=== PATIENT | female | born 1935 | race Caucasian/White ===

== ENCOUNTER 2017-03-07 10:36 | Inpatient (IN) | payer BC ==
--- NOTE | ~2017-03-07 | IDS ---
Interim Discharge Summary [facility] [address] [place]. [address] NAME: TONJA SPANN JANI : 34 STATUS : ADM IN PAT#: [id number] AGE: 81 ADM/REG DATE : 03/07/17 MR#: [id number] REPORT SERV DATE: 03/12/17 DICTATED BY: CA HOGAN DATE: 03/12/17 REPORT STATUS : Draft TRANSCRIBED BY: MODL DATE: 03/12/17 ADMISSION DATE: 03/07/2017 DISCHARGE DATE: PROBLEM LIST: 1. Community acquired pneumonia, left lower lobe, with small pleural effusion. 2. Acute exacerbation of chronic obstructive pulmonary disease in a smoker. 3. Metabolic encephalopathy, acute and dramatically improved. 4. Acute kidney injury, transient and resolved. 5. Acute urinary retention, resolved. 6. Episode of asymptomatic nonsustained ventricular tachycardia. 7. Hypertension. 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 HISTORY: This patient's was hospitalized in [facility] in [place] for about 10 days in early February, reportedly the patient stayed with him 13/05 and became exhausted, he reportedly had a pneumonia. He has gone home, but she has been trying to help take care of him and running back daily for outpatient treatment. The patient reportedly was noted by her family to be progressively more exhausted, then she developed cough, sore throat, diffuse muscle aches, and anorexia. She was taken by her family to her PCP, who thought she might have a urinary tract infection, because of how weak she was, and complaints of subjective fever, diaphoresis, and confusion. She was sent to the emergency room for evaluation. In the emergency room at [facility], her sodium was 130, her BUN was 76, creatinine was 3.17. Chest x-ray revealed left basilar infiltrate. The patient was referred to our team for inpatient care. Imaging initially in the hospital included CT scan of the brain without contrast. 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 The chest x-ray showed the left lower lobe infiltrate as mentioned above. CT scan of the chest without contrast revealed consolidation in the left lung base, some pleural fluid, and a 1.5 x 0.7 opacity in the lateral aspect of the right upper lobe, which will need CT followup or PET follow up in three months. The ER also did a CT of the abdomen and pelvis, which had no significant abnormalities. The patient was hospitalized, there was evidence for urinary retention, so, a Gomez catheter was placed. A renal ultrasound showed bilateral benign renal cysts, otherwise normal findings. She was given IV fluids and her renal function rapidly improved, by the next day, creatinine 1.73, and by 03/09/2017 creatinine 0.98/ and by 03/12/2017 it was 0.79. The patient was on Rocephin and had blood cultures x2 with no growth. She was not able to collect a sputum. Initially, the patient had a procalcitonin markedly elevated at 10.06, by 7was 0.87. White count on admission was 23.1, by 03/10/2017 it was 7.6. The patient was initially confused and agitated, our night scallop cutter had her receive some Geodon, after that she slept deeply, and then thereafter awoke and each day was steadily Interim Discharge Summary [address] [address] NAME: TONJA SPANN JANI : 34 STATUS : ADM IN PAT#: [id number] AGE: 81 ADM/REG DATE : 03/07/17 MR#: [id number] REPORT SERV DATE: 03/12/17 DICTATED BY: CA HOGAN DATE: 03/12/17 REPORT STATUS : Draft TRANSCRIBED BY: SHEREE DATE: 03/12/17 more clear of mind, and back to her usual self. We were able to take the Gomez catheter out, she was able to void her urine well. Followup chest x-rays revealed this continued left lower lobe infiltrate and small effusion that has not completely cleared yet. The patient has had two short episodes of approximately seven to nine beats of nonsustained ventricular tachycardia. Her potassium levels were not low during these times. Her magnesium levels were not low either. We are obtaining an echocardiogram on the 03/12/2017, to assess for left ventricular dysfunction, in the meantime, she has been started on metoprolol and is tolerating that well. She walks with physical therapy and the nursing staff, and she only needs contact guard assistance. We are planning for home health with visiting nurse to check her blood pressure, and respiratory status, and Physical Therapy to continue assessment and treatment. She states she already has a walker at home though she is not needing it here. She requested a bedside commode to be used at home. We will ask the PCP to follow up longitudinally to make sure that there is a resolution of this left lower lobe infiltrate, as well as schedule the followup CT of the chest in three months to look at this 1.5 x 0.7 opacity in the lateral aspect of the right upper lobe. A partner of mine will be assuming her care tomorrow. MARY/SHEREE Ca Hogan M.D. / [id number] CC: Fernanda Osei M.D.
--- NOTE | ~2017-03-07 | DS ---
Discharge Summary [facility] [address] [place]. [address] NAME: TONJA SPANN JANI : 34 STATUS : DIS IN PAT#: [id number] AGE: 81 ADM/REG DATE : 03/07/17 MR#: [id number] REPORT SERV DATE: 03/14/17 DICTATED BY: DEENA STERN DATE: 03/13/17 REPORT STATUS : Draft TRANSCRIBED BY: MODL DATE: 03/13/17 ADMISSION DATE: 03/07/2017 DISCHARGE DATE: 03/13/2017 PRINCIPAL DIAGNOSES: Community-acquired pneumonia, pleural effusions. SECONDARY DIAGNOSES: Chronic obstructive pulmonary disease, acute kidney injury, and encephalopathy. HISTORY OF PRESENT ILLNESS: Please see Dr. Dao's dictation on 03/07/2017. HOSPITAL COURSE: Please see Dr. Hogan's dictation on 03/11/2017. Subsequent hospital course, the patient's effusion was very small. She had completed a seven-day of antibiotics on 03/13/2017. No further antibiotic therapy will be necessary. However, it was important that as she wished to go home to follow up with Dr. Sales to ensure resolution of the small pleural effusion and of the infiltrate. She was afebrile, was eating satisfactorily. A nebulizer machine was provided for her and DuoNebs were prescribed, but no further antibiotic. She will continue her other home medications. Home Health physical therapy was arranged, and the following medications Coreg, guaifenesin, DuoNebs as mentioned, Zoloft, B12, calcium, aspirin. She will follow up with Dr. Sales in one week. DICTATED BY: Fernanda Casillas/SHEREE Deena Stern M.D. / [id number] CC: Fernanda Osei M.D.
--- NOTE | ~2017-03-07 | HP ---
History And Physical [facility] [address] [place]. [address] NAME: TONJA SPANN JANI : 34 STATUS : ADM IN [facility]#: [id number] AGE: 81 ADM/REG DATE : 03/07/17 MR#: [id number] REPORT SERV DATE: 03/07/17 DICTATED BY: KARLENELAURENT DATE: 03/07/17 REPORT STATUS : Draft TRANSCRIBED BY: MODJhoan DATE: 03/07/17 DATE OF ADMISSION: 03/07/2017 HISTORY OF PRESENT ILLNESS: This is a very pleasant 81-year-old female, who presented to [facility] accompanied with her two sisters and her , they all reported that the patient was not feeling well. She was feeling exhausted and tired for the last week, specifically for the last three days. She said that her was hospitalized in the hospital for a week in [facility]. She was complaining of cough, and had pneumonia. She was also complaining of hurting in her vaginal area, and she saw Dr. Sales, who diagnosed her with urinary infection. Dr. Osorio Sales spoke with the Emergency Room physician Dr. Tapia, and told him that the patient has a urinary infection, and since he obtained urinalysis, but urinalysis was never sent here, and since the patient could not produce any urine, the patient was already given antibiotics here in the emergency room, but the urine was not obtained yet. The patient was complaining of weakness. She was feeling feverish, sweating, although she did not measure her temperature. Very weak, some degree of confusion, had a fall yesterday, but did not have any abnormality since she fell. She became more confused having memory problems, although before they said she did not have memory problems. This is just going for a week, and according to the patient's sisters and she did not have any dementia. She told me that she had a bowel movement yesterday. PAST MEDICAL HISTORY: Known for back problems, chronic back pain, history of colon problems, history of colon surgeries for adhesions, and history of hysterectomy. She had adhesions around her intestine, as well as she has history of hypertension. She denies any history of strokes. No history of heart attacks. She has also osteoporosis. PAST SURGICAL HISTORY: Cataract surgery, colon surgery, and hysterectomy. ALLERGIES: NO KNOWN DRUG ALLERGIES. SOCIAL HISTORY: She is still smoking. She smokes three to four to one pack per day. No alcohol. No recreational drug use. She lives with her . She has one grownup child. FAMILY HISTORY: Mother from heart disease. Father from Parkinson's disease. HOME MEDICATIONS: Include aspirin 81 mg daily, azithromycin was prescribed by Dr. Sales on 03/05/2017, calcium with vitamin D 500 daily, vitamin B12 500 mcg daily, Colace 100 mg as needed, [place] 5/325 one tablet p.o. q.6 hours p.r.n., lisinopril 5 mg daily, ranitidine 150 p.o. twice a day, 1 tablet p.o. daily, and Zoloft 50 mg daily. The patient denied any use of nonsteroidal antiinflammatories. REVIEW OF SYSTEMS: All 14-point review of systems was done and negative except what stated in the history of present illness. History And Physical [address] [address] NAME: TONJA SPANN JANI : 34 STATUS : ADM IN [facility]#: [id number] AGE: 81 ADM/REG DATE : 03/07/17 MR#: [id number] REPORT SERV DATE: 03/07/17 DICTATED BY: LAURENT SOLER DATE: 03/07/17 REPORT STATUS : Draft TRANSCRIBED BY: SHEREE DATE: 03/07/17 PHYSICAL EXAMINATION: GENERAL: Thin female, not in acute distress. Resting quietly. Very weak. VITAL SIGNS: Blood pressure 106/49, temperature 97.6, heart rate 91, respiratory rate 18, and oxygen saturation 93% on room air. HEENT: Head atraumatic, normocephalic. Conjunctivae clear. Pupils are equal and reactive to light and accommodation. Extraocular muscles are intact. NECK: Supple. Trachea is midline. LYMPHATICS: No supraclavicular or cervical lymphadenopathy. LUNGS: Diminished breath sounds bilaterally. Decreased respiratory effort. Chest wall; kyphotic. CARDIOVASCULAR: Regular rate and rhythm. Point of maximal impulse not displaced. ABDOMEN: Soft, nontender, and nondistended. Positive normoactive bowel sounds. No organomegaly. EXTREMITIES: No clubbing, cyanosis, or edema. SKIN: Normal color, decreased turgor. NEUROLOGIC: Awake, alert, and oriented in time, place, and person. Muscle strength is 5/5 bilaterally on upper and lower extremities. LABORATORY RESULTS: Sodium 130, potassium 3.2, chloride 93, carbon dioxide 27, BUN 76, and creatinine 3.17. Blood sugar 87. ALT 19, AST 16. White count 23,000, hemoglobin 14.1, hematocrit 39.4, and platelet count 316. Neutrophil percentage 93.7. Urinalysis is ordered, but not done. Blood cultures are drawn. Chest x-ray showed mild venous congestion, left basilar consolidation with left pleural fluid. CT of the head showed 8 mm probable basilar tip aneurysm. If there is any outside prior imaging studies, I would be glad to obtain them to compare, otherwise correlation with the MRI/MRA recommended. Chronic ischemic and involutional change are mild for age. No acute findings demonstrated. EKG was of poor quality. It looks like the patient is in a regular rate of 89, inferior infarction of undetermined age. We will repeat this EKG for better quality. Also, some records we got from Dr. Sales's office, who also add to her past medical history. She had multiple vertebral fractures with vertebroplasties, history of chronic back pain, history of opioid- induced constipation which she had difficulties with opioid-induced constipation. She also had right carotid artery disease which was found to be less than 50% on prior ultrasonography. ASSESSMENT AND PLAN: 1. This is an 81-year-old female, who presented with weakness, cough, and was found to have acute kidney injury with severely abnormal creatinine. 2. Hypokalemia. 3. Severe leukocytosis. 4. Questionable urinary tract infection. We have to request urinalysis from Dr. Sales, and we will repeat urinalysis here. 5. Cough. Question if this is pneumonia. 6. Weakness secondary to the problems mentioned above. 7. For acute kidney injury, we will start her on IV fluid hydration. She denied any use of nonsteroidal antiinflammatories. I will do CT of the abdomen and pelvis without contrast to rule out any obstruction, we will also order ultrasound of the kidney. 8. Leukocytosis. Question etiology of leukocytosis. If this is related to her urinary History And Physical [address] [address] NAME: TONJA SPANN JANI : 34 STATUS : ADM IN PAT#: [id number] AGE: 81 ADM/REG DATE : 03/07/17 MR#: [id number] REPORT SERV DATE: 03/07/17 DICTATED BY: LAURENT SOLER DATE: 03/07/17 REPORT STATUS : Draft TRANSCRIBED BY: MODJhoan DATE: 03/07/17 tract infection, we will need to obtain her urinalysis from primary care physician, and repeat it here, although she already received by the ER, dose of Rocephin. We will continue intravenous Rocephin for her leukocytosis. Differential diagnosis also includes pneumonia, especially with severe cough, and she was coughing in front of me. Her reported that cough was initially productive and now nonproductive. We will check CT of the chest without contrast. I will also order IV fluids, BNP, as well as serum B12, folate level, and troponins. Urinalysis to be repeated. EKG to be repeated, and my partner will see this patient starting tomorrow morning. Everything was discussed with the patient and family, and they were told that she has a small brain aneurysm, which is currently asymptomatic. MG/MODJhoan Laurent Soler M.D. / [id number] CC: Fernanda Villarreal M.D.
[2017-03-07 11:08] LABS: BASOPHILS 0.1 %; BASOPHILS ABSOLUTE 0.02 10/3/uL (0.0-0.16); EOSINOPHILS 0 %; EOSINOPHILS ABSOLUTE 0.01 10/3/uL (0.0-0.53); HEMATOCRIT 39.4 % (36.0-48.0); HEMOGLOBIN 14.1 g/dL (12.0-16.0); LYMPHOCYTES 2.3 %; LYMPHOCYTES ABSOLUTE 0.54 10/3/uL (0.67-4.30); MEAN CORPUS HGB CONC 35.8 g/dL (32.0-36.0); MEAN CORPUSCULAR HEMOGLOB 31.8 pg (26.0-34.0); MEAN CORPUSCULAR VOLUME 88.7 fL (80-100); MEAN PLATELET VOLUME 10.9 fL (9.2-13.0); MONOCYTES 2.9 %; MONOCYTES ABSOLUTE 0.67 10/3/uL (0.21-1.20); NEUTROPHILS 93.7 %; RBC DISTRIBUTION WIDTH 13.3 % (12.0-16.0); RED CELL COUNT 4.44 10/6/uL (4.0-5.6); WHITE BLOOD CELLS 23.1 10/3/uL (4.5-10.5)
[2017-03-07 11:09] LABS: IMMATURE GRANULOCYTES ABSOLUTE 0.22 10/3/uL (0.0-0.11); MANUAL DIFF NO %; PLATELET COUNT 316 10/3/uL (150-400)
[2017-03-07 11:23] LABS: CALCIUM, SERUM 10.1 MG/DL (8.5-10.4); CO2 (CARBON DIOXIDE) 27 MMOL/L (24-34); SALICYLATE 3.3 MG/DL (-); SGOT(AST) 16 U/L (5-40); SGPT(ALT) 19 U/L (5-65); TOTAL BILIRUBIN 0.4 MG/DL (0-1.2); TOTAL PROTEIN 7.6 G/DL (6.0-8.5)
[2017-03-07 11:25] LABS: A/G RATIO 0.5 (0.7-1.9); ALBUMIN 2.4 G/DL (3.5-5.0); ALCOHOL < 10 MG/DL (0); ALKALINE PHOSPHATASE 141 U/L (45-117); BUN (BLOOD UREA NITROGEN) 76 MG/DL (6-23); CHLORIDE, SERUM 93 MMOL/L (96-112); CREATININE 3.17 MG/DL (0.55-1.02); GFR AFRICAN AMERICAN 15 ML/MIN (>=60); GFR NON AFRICAN AMERICAN 13 ML/MIN (>=60); GLOBULIN 5.2 G/DL (2.5-4.1); GLUCOSE, SERUM 87 MG/DL (60-99); POTASSIUM, SERUM 3.2 MMOL/L (3.5-5.3); SODIUM, SERUM 130 MMOL/L (135-148)
[2017-03-07 11:27] LABS: ER DIFF TAT 0 Hrs 23 Mins; LYMPHOCYTES 3 %; LYMPHOCYTES ABSOLUTE (CALC) 0.69 10/3/uL (0.67-4.30); MONOCYTES 3 %; MONOCYTES ABSOLUTE (CALC) 0.69 10/3/uL (0.21-1.20); NEUTROPHILS ABSOLUTE (CALC) 21.71 10/3/uL (2.02-8.40); PLATELET ESTIMATE ADQ (ADEQUATE); RBC MORPHOLOGY NORM (NORMAL); SEGMENTED NEUTROPHIL (0) 94 %; TOTAL NUCLEATED CELLS 100
[2017-03-07] MEDS ORDERED: ZOL50 PO (12:20)
[2017-03-07] MEDS ORDERED: NORCO1 TA1 PO (12:20)
[2017-03-07] MEDS ORDERED: ASAB PO (12:21)
[2017-03-07] MEDS ORDERED: DSS PO (12:21)
[2017-03-07] MEDS ORDERED: PERI-COLACE1 TAB PO (12:21)
[2017-03-07] MEDS ORDERED: B12250T PO (12:22)
[2017-03-07] MEDS ORDERED: ZANTAC150 MG PO (12:22)
[2017-03-07] MEDS ORDERED: PRIN5 PO (12:22)
[2017-03-07] MEDS ORDERED: OS500+D PO (12:23)
[2017-03-07] MEDS ORDERED: ZITHROMAX500 MG PO (12:23)
[2017-03-07 17:31] LABS: WBC (NOT ORDERED) (RFLEX) 0 (0-5)
[2017-03-07 18:08] LABS: ASCORBIC ACID (UR NOT ORDER) NEG (NEG); BILIRUBIN, URINE NEGATIVE (NEG); KETONE, URINE NEGATIVE (NEG); LEUKOCYTE ESTERASE(NOT OR NEG (NEG)
[2017-03-07 18:27] LABS: AMPHETAMINES (NOT ORD) NEG (NEG); BARBITURATES (NOT ORDERED NEG (NEG); BENZODIAZEPINES (NOT ORD) NEG (NEG); CANNABINOIDS (THC) NEG (NEG); COCAINE (NOT ORDERED) NEG (NEG); OPIATES POS (NEG); PHENCYCLIDINE(PCP) NEG (NEG); TRICYCLICS NEG (NEG)
[2017-03-07 19:48] LABS: FOLATE 4.9 NG/ML (>5.2)
[2017-03-07 19:52] LABS: TROPONIN I 0.05 NG/ML (<0.05); ULTRASENSITIVE TSH 0.963 MCIU/ML (0.358-3.740)
[2017-03-07 19:53] LABS: PROCALCITONIN 10.06 ng/mL (<0.5)
[2017-03-08 06:32] LABS: HEMOGLOBIN 11.4 g/dL (12.0-16.0); MEAN CORPUS HGB CONC 34.2 g/dL (32.0-36.0); MEAN CORPUSCULAR HEMOGLOB 31.2 pg (26.0-34.0); MEAN CORPUSCULAR VOLUME 91.2 fL (80-100); MEAN PLATELET VOLUME 10.4 fL (9.2-13.0); PLATELET COUNT 277 10/3/uL (150-400); RBC DISTRIBUTION WIDTH 13.6 % (12.0-16.0); RED CELL COUNT 3.65 10/6/uL (4.0-5.6)
[2017-03-08 06:37] LABS: HEMATOCRIT 33.3 % (36.0-48.0); MANUAL DIFF YES %; WHITE BLOOD CELLS 13.6 10/3/uL (4.5-10.5)
[2017-03-08 06:54] LABS: CHLORIDE, SERUM 110 MMOL/L (96-112); SGOT(AST) 12 U/L (5-40); SGPT(ALT) 12 U/L (5-65); TOTAL BILIRUBIN 0.8 MG/DL (0-1.2); TROPONIN I 0.02 NG/ML (<0.05)
[2017-03-08 06:58] LABS: A/G RATIO 0.4 (0.7-1.9); ALBUMIN 1.6 G/DL (3.5-5.0); ALKALINE PHOSPHATASE 103 U/L (45-117); BUN (BLOOD UREA NITROGEN) 59 MG/DL (6-23); CALCIUM, SERUM 8.9 MG/DL (8.5-10.4); CO2 (CARBON DIOXIDE) 21 MMOL/L (24-34); CREATININE 1.73 MG/DL (0.55-1.02); GFR AFRICAN AMERICAN 31 ML/MIN (>=60); GFR NON AFRICAN AMERICAN 27 ML/MIN (>=60); GLOBULIN 3.9 G/DL (2.5-4.1); GLUCOSE, SERUM 65 MG/DL (60-99); POTASSIUM, SERUM 4.1 MMOL/L (3.5-5.3); SODIUM, SERUM 142 MMOL/L (135-148); TOTAL PROTEIN 5.5 G/DL (6.0-8.5)
[2017-03-08 07:52] LABS: BAND NEUTROPHILS 1 %; LYMPHOCYTES 5 %; LYMPHOCYTES ABSOLUTE (CALC) 0.68 10/3/uL (0.67-4.30); MONOCYTES 6 %; MONOCYTES ABSOLUTE (CALC) 0.82 10/3/uL (0.21-1.20); PLATELET ESTIMATE ADQ (ADEQUATE); RBC MORPHOLOGY NORM (NORMAL); SEGMENTED NEUTROPHIL (0) 88 %; TOTAL NUCLEATED CELLS 100
[2017-03-09 06:21] LABS: BASOPHILS 0.1 %; BASOPHILS ABSOLUTE 0.01 10/3/uL (0.0-0.16); EOSINOPHILS 0 %; HEMATOCRIT 33.5 % (36.0-48.0); HEMOGLOBIN 11.6 g/dL (12.0-16.0); IMMATURE GRANULOCYTES 2.4 %; IMMATURE GRANULOCYTES ABSOLUTE 0.27 10/3/uL (0.0-0.11); LYMPHOCYTES 4.9 %; LYMPHOCYTES ABSOLUTE 0.56 10/3/uL (0.67-4.30); MEAN CORPUS HGB CONC 34.6 g/dL (32.0-36.0); MEAN CORPUSCULAR HEMOGLOB 31.3 pg (26.0-34.0); MEAN CORPUSCULAR VOLUME 90.3 fL (80-100); MONOCYTES 7.1 %; MONOCYTES ABSOLUTE 0.81 10/3/uL (0.21-1.20); NEUTROPHILS 85.5 %; NEUTROPHILS ABSOLUTE 9.72 10/3/uL (2.02-8.40); PLATELET COUNT 301 10/3/uL (150-400); RBC DISTRIBUTION WIDTH 13.9 % (12.0-16.0); RED CELL COUNT 3.71 10/6/uL (4.0-5.6); WHITE BLOOD CELLS 11.4 10/3/uL (4.5-10.5)
[2017-03-09 06:22] LABS: MANUAL DIFF NO %
[2017-03-09 06:31] LABS: CHLORIDE, SERUM 112 MMOL/L (96-112); CO2 (CARBON DIOXIDE) 22 MMOL/L (24-34); GFR AFRICAN AMERICAN 62 ML/MIN (>=60); GFR NON AFRICAN AMERICAN 54 ML/MIN (>=60); GLUCOSE, SERUM 68 MG/DL (60-99); POTASSIUM, SERUM 3.9 MMOL/L (3.5-5.3); SODIUM, SERUM 143 MMOL/L (135-148)
[2017-03-09 06:32] LABS: BUN (BLOOD UREA NITROGEN) 40 MG/DL (6-23); CREATININE 0.98 MG/DL (0.55-1.02)
[2017-03-10 06:54] LABS: BASOPHILS 0.1 %; BASOPHILS ABSOLUTE 0.01 10/3/uL (0.0-0.16); EOSINOPHILS 0.3 %; EOSINOPHILS ABSOLUTE 0.02 10/3/uL (0.0-0.53); HEMATOCRIT 31.8 % (36.0-48.0); HEMOGLOBIN 10.9 g/dL (12.0-16.0); IMMATURE GRANULOCYTES 3.7 %; IMMATURE GRANULOCYTES ABSOLUTE 0.27 10/3/uL (0.0-0.11); LYMPHOCYTES 6.1 %; LYMPHOCYTES ABSOLUTE 0.44 10/3/uL (0.67-4.30); MEAN CORPUS HGB CONC 34.3 g/dL (32.0-36.0); MEAN CORPUSCULAR HEMOGLOB 30.5 pg (26.0-34.0); MEAN CORPUSCULAR VOLUME 89.1 fL (80-100); MEAN PLATELET VOLUME 9.9 fL (9.2-13.0); MONOCYTES 12.7 %; MONOCYTES ABSOLUTE 0.92 10/3/uL (0.21-1.20); NEUTROPHILS 77.1 %; NEUTROPHILS ABSOLUTE 5.56 10/3/uL (2.02-8.40); PLATELET COUNT 293 10/3/uL (150-400); RBC DISTRIBUTION WIDTH 13.6 % (12.0-16.0); RED CELL COUNT 3.57 10/6/uL (4.0-5.6); WHITE BLOOD CELLS 7.2 10/3/uL (4.5-10.5)
[2017-03-10 06:55] LABS: MANUAL DIFF NO %
[2017-03-10 07:09] LABS: CALCIUM, SERUM 8.9 MG/DL (8.5-10.4); CHLORIDE, SERUM 112 MMOL/L (96-112); CO2 (CARBON DIOXIDE) 24 MMOL/L (24-34); CREATININE 0.74 MG/DL (0.55-1.02); GFR AFRICAN AMERICAN 87 ML/MIN (>=60); GFR NON AFRICAN AMERICAN 75 ML/MIN (>=60); POTASSIUM, SERUM 3.6 MMOL/L (3.5-5.3); SODIUM, SERUM 144 MMOL/L (135-148)
[2017-03-10 07:10] LABS: BUN (BLOOD UREA NITROGEN) 26 MG/DL (6-23); GLUCOSE, SERUM 93 MG/DL (60-99)
[2017-03-10 07:59] LABS: PROCALCITONIN 0.87 ng/mL (<0.5)
[2017-03-11 05:15] LABS: HEMATOCRIT 31.8 % (36.0-48.0); HEMOGLOBIN 10.5 g/dL (12.0-16.0); MEAN CORPUSCULAR HEMOGLOB 30.5 pg (26.0-34.0); MEAN PLATELET VOLUME 10.1 fL (9.2-13.0); PLATELET COUNT 293 10/3/uL (150-400); RBC DISTRIBUTION WIDTH 13.8 % (12.0-16.0); RED CELL COUNT 3.44 10/6/uL (4.0-5.6); WHITE BLOOD CELLS 5.6 10/3/uL (4.5-10.5)
[2017-03-11 05:16] LABS: MANUAL DIFF YES %; MEAN CORPUSCULAR VOLUME 92.4 fL (80-100)
[2017-03-11 05:35] LABS: CHLORIDE, SERUM 115 MMOL/L (96-112); CO2 (CARBON DIOXIDE) 26 MMOL/L (24-34); CREATININE 0.64 MG/DL (0.55-1.02); GFR AFRICAN AMERICAN 96 ML/MIN (>=60); GFR NON AFRICAN AMERICAN 83 ML/MIN (>=60); GLUCOSE, SERUM 92 MG/DL (60-99); POTASSIUM, SERUM 3.6 MMOL/L (3.5-5.3); SODIUM, SERUM 141 MMOL/L (135-148)
[2017-03-11 05:36] LABS: BUN (BLOOD UREA NITROGEN) 20 MG/DL (6-23)
[2017-03-11 05:42] LABS: BAND NEUTROPHILS 1 %; IMMATURE GRANS ABSOLUTE (CALC) 0.28 10/3/uL (0.0-0.11); LYMPHOCYTES 7 %; LYMPHOCYTES ABSOLUTE (CALC) 0.39 10/3/uL (0.67-4.30); METAMYELOCYTES 5 %; MONOCYTES 7 %; MONOCYTES ABSOLUTE (CALC) 0.39 10/3/uL (0.21-1.20); NEUTROPHILS ABSOLUTE (CALC) 4.54 10/3/uL (2.02-8.40); PLATELET ESTIMATE ADQ (ADEQUATE); SEGMENTED NEUTROPHIL (0) 80 %; TOTAL NUCLEATED CELLS 100
[2017-03-11 05:43] LABS: RBC MORPHOLOGY NORM (NORMAL)
[2017-03-12 05:43] LABS: CALCIUM, SERUM 9.1 MG/DL (8.5-10.4); CHLORIDE, SERUM 108 MMOL/L (96-112); CO2 (CARBON DIOXIDE) 29 MMOL/L (24-34); CREATININE 0.79 MG/DL (0.55-1.02); GFR AFRICAN AMERICAN 81 ML/MIN (>=60); GFR NON AFRICAN AMERICAN 70 ML/MIN (>=60); GLUCOSE, SERUM 86 MG/DL (60-99); SODIUM, SERUM 141 MMOL/L (135-148)
[2017-03-12 05:46] LABS: BUN (BLOOD UREA NITROGEN) 16 MG/DL (6-23); POTASSIUM, SERUM 4.9 MMOL/L (3.5-5.3)
[2017-03-12] MEDS ORDERED: COREG6 PO (10:22)
[2017-03-13] MEDS ORDERED: DUONEB INH (16:09)
== END 2017-03-13 16:50 | disposition home health service (06) | DRG 682 ==
LOC: ER 10:36 → 4SO 14:34
PROVIDERS: Emergency Medicine; Hospitalist; Internal Medicine
DX: N17.9 Acute kidney failure, unspecified (principal); J18.9 Pneumonia, unspecified organism; G93.41 Metabolic encephalopathy; I47.2 Ventricular tachycardia; J90 Pleural effusion, not elsewhere classified; J44.0 Chronic obstructive pulmonary disease with (acute) lower respiratory infection; I67.1 Cerebral aneurysm, nonruptured; J44.1 Chronic obstructive pulmonary disease with (acute) exacerbation; E87.6 Hypokalemia; F17.200 Nicotine dependence, unspecified, uncomplicated; G89.29 Other chronic pain; M54.9 Dorsalgia, unspecified; I10 Essential (primary) hypertension; M81.0 Age-related osteoporosis without current pathological fracture; F17.210 Nicotine dependence, cigarettes, uncomplicated; Z79.82 Long term (current) use of aspirin; Z79.891 Long term (current) use of opiate analgesic; K59.03 Drug induced constipation; T40.0X5A Adverse effect of opium, initial encounter; R53.1 Weakness; R33.9 Retention of urine, unspecified; R53.83 Other fatigue
CPT/HCPCS: 70450; 71010; 71250; 74176; 76775; 80048; 80053; 80305; 80307; 81001; 82607; 82746; 83735; 83880; 84132; 84145; 84443; 84484; 85025; 87040; 87449; 93005; 93306; 94640; 96361; 96374; 97110-GP; 97116-GP; 97162-GP; 99285; A9270-GY; J3486